=== PATIENT | male | born 1950 ===

== ENCOUNTER 2016-05-15 10:13 | Outpatient (RCR) | payer MEDICARE ==
[~2016-05-15] VITALS: Ht 182.9 cm; Wt 108.9 kg
[2016-05-16] MEDS ORDERED: Lidocaine 4% Top Soln 50ml TOPIC ONE (16:45)
== END 2016-05-28 | disposition home or self-care (01) ==
LOC: WCC 10:13
DX: L97.202 Non-pressure chronic ulcer of unspecified calf with fat layer exposed (principal); Z82.49 Family history of ischemic heart disease and other diseases of the circulatory system; Z96.642 Presence of left artificial hip joint
CPT/HCPCS: 29580; G0463

== ENCOUNTER 2016-05-29 08:58 | Outpatient (RCR) | payer MEDICARE | END 2016-06-25 | disposition home or self-care (01) | LOC: WCC 08:58 | DX: L97.202 Non-pressure chronic ulcer of unspecified calf with fat layer exposed (principal); M79.605 Pain in left leg; Z96.642 Presence of left artificial hip joint | CPT/HCPCS: 11042; 11045; 29580 ==

== ENCOUNTER 2016-06-26 08:47 | Outpatient (RCR) | payer MEDICARE | END 2016-07-26 | disposition home or self-care (01) | LOC: WCC 08:47 | DX: L97.202 Non-pressure chronic ulcer of unspecified calf with fat layer exposed (principal); M79.605 Pain in left leg; Z96.642 Presence of left artificial hip joint; M19.90 Unspecified osteoarthritis, unspecified site | CPT/HCPCS: 15271; 29580; C5271; Q4102; Q4133 ==

== ENCOUNTER 2016-07-30 08:41 | Outpatient (RCR) | payer MEDICARE | END 2016-08-25 | disposition home or self-care (01) | LOC: WCC 08:41 | DX: L97.202 Non-pressure chronic ulcer of unspecified calf with fat layer exposed (principal); M79.605 Pain in left leg; Z96.642 Presence of left artificial hip joint | CPT/HCPCS: 11042; 29580; G0463 ==